=== PATIENT | female | born 1965 | race Caucasian/White ===

== ENCOUNTER 2016-11-10 17:13 | Emergency (ER) | payer OTHER ==
[~2016-11-10] VITALS: Ht 157.5 cm; Wt 78.0 kg
[2016-11-10 17:15] VITALS: Ht 157.5 cm; Wt 78.0 kg
[2016-11-10] MEDS ORDERED: KETOROLAC 30 MG INJ IM STA (17:57)
[2016-11-10] MEDS ORDERED: traMADol 50 MG TAB PO ONE (18:00)
--- NOTE | 2016-11-10 18:33 | ERD ---
ER Documentation Chief Complaint Date/Time DATE: 11/10/16 TIME: 18:22 Chief Complaint UPPER BACK PAIN HPI Patient is a 51-year-old female here with neighbor who presents to the ED with upper back pain and neck pain 1 week. Patient states that she has a history of chronic low back pain 4 years. She states that she used to do a lot of house cleaning and developed pain to her low back. She states that she has been using a back brace and states that she has been sleeping with her back brace and developed pain to her upper back. She states that she feels "a pinched nerve". She denies bowel or bladder incontinence. She is able to move her neck but hurts with extreme flexion and extension. Denies trauma or falls. Denies headache or dizziness. Denies fever or chills. ROS All systems reviewed and are negative except as per history of present illness. Medications Home Meds Active Scripts Hydrocodone/Acetaminophen (Jackson 5-325 Tablet) 1 Each Tablet, 1 TAB PO Q6H Y for PAIN, #5 TAB Prov:ELY MCPHERSON PA-C 11/10/16 Meloxicam* (Meloxicam*) 7.5 Mg Tablet, 7.5 MG PO DAILY, #30 TAB Prov:ELY MCPHERSON PA-C 11/10/16 Reported Medications [None] No Conflict Check 12/20/15 Allergies Allergies: Coded Allergies: No Known Allergy (Unverified , 12/20/15) PMhx/Soc History of Surgery: Yes ( X2) Anesthesia Reaction: No Hx Neurological Disorder: No Hx Respiratory Disorders: No Hx Cardiac Disorders: No Hx Psychiatric Problems: No Hx Miscellaneous Medical Probl: No Hx Alcohol Use: Yes (social) Hx Substance Use: No Hx Tobacco Use: No Smoking Status: Never smoker FmHx Family History: No coronary disease, No diabetes, No other Physical Exam Vitals Vital Signs Date Time Temp Pulse Resp B/P Pulse Ox O2 Delivery O2 Flow Rate FiO2 11/10/16 17:15 98.1 68 18 138/78 99 Physical Exam ER COURSE: I kept the patient and/or family informed of laboratory and diagnostic imaging results throughout the emergency room course. IMAGING STUDIES MEDICAL DECISION MAKING: This is a [] who presents with []. Vital signs were reviewed. Patient is afebrile. Patient is not hypoxic. DISCHARGE: Results 24 hrs Current Medications Medications (Trade) Dose Ordered Sig/Bessy Route PRN Reason Start Time Stop Time Status Last Admin Dose Admin Tramadol HCl (Ultram) 50 mg ONCE ONCE PO 11/10/16 18:00 11/10/16 18:00 DC Ketorolac Tromethamine (Toradol) 30 mg ONCE STAT IM 11/10/16 17:57 11/10/16 17:59 DC 11/10/16 18:03 Acetaminophen (Tylenol Tab) 650 mg ONCE ONCE PO 11/10/16 19:30 11/10/16 19:31 11/10/16 19:23 Procedures/MDM ER COURSE: I kept the patient and/or family informed of laboratory and diagnostic imaging results throughout the emergency room course. IMAGING STUDIES [place] [id number] Radiology Main Line: [phone] DIAGNOSTIC IMAGING REPORT Patient: SARAH BAE : 1965 Age: 51 Sex: F MR #: [id number] DOS: 11/10/16 1741 Ordering MD: ELY MCPHERSON PA-C Location: [facility] Room/Bed: PROCEDURE: CT Cervical Spine without contrast. CLINICAL INDICATION: neck pain TECHNIQUE: Multiple axial cuts through the cervical spine with coronal and sagittal reformats were obtained without contrast. The calculated radiation dose measures 522 mGy centimeters. The CTDI measures 22 mGy COMPARISON: No prior studies are available for comparison. FINDINGS: There is straightening of the normal cervical lordosis. There is mild anterolisthesis at C3-C4 and C4-C5, measuring 3 mm and 2 mm. There is minimal disk space narrowing at C7-T1 and T1-T2. There is normal height of the vertebral bodies. There is no bone destruction or sclerosis. There is no visualized fracture. The atlantoaxial articulation demonstrates mild to moderate degenerative change.. There is normal craniocervical alignment. C2-3: There is minimal left uncovertebral hypertrophy. There is mild left facet hypertrophy. There is no bony central canal stenosis. There is minimal left foraminal stenosis. There is no significant bony right foraminal stenosis.. C3-4: There is a mild anterolisthesis. There is mild bilateral facet hypertrophy. There is no bony central canal stenosis. There is minimal bilateral bony foraminal stenosis.. C4-5: There is a mild anterolisthesis. There is no significant facet hypertrophy. There is no bony central canal stenosis. There is no bony foraminal stenosis.. C5-6: There is a minimal diffuse disk bulge. There is no significant facet hypertrophy. There is minimal central canal stenosis. There is no significant foraminal stenosis. C6-7: There is a mild central disk protrusion, 2 mm. There is minimal bilateral facet hypertrophy. There is mild appearing central canal stenosis. There is no bony foraminal stenosis.. C7-T1: There is no disk protrusion or extrusion. There is mild to moderate left facet hypertrophy. There is no right facet hypertrophy. There is no bony central canal stenosis. There is no bony foraminal stenosis.. There is no abnormal paravertebral soft tissue mass. IMPRESSION: 1. Mild anterolisthesis at C3-C4 and C4-C5, measuring 3 mm and 2 mm. 2. Mild central disk protrusion at C6-C7, and minimal disk bulge at C5-C6. Associated mild appearing central canal stenosis at C6-C7, and minimal central canal stenosis at C5-C6. 3. Mild-moderate left facet hypertrophy at C7-T1. Mild facet hypertrophy as noted at C2-C3 and C3-C4. Minimal appearing foraminal stenosis as noted at C2- C3 and C3-C4. RPTAT: HBST .Woody Lorenzo MD, MD Date Time Electronically viewed and signed by .Woody Lorenzo MD, MD on 11/10/2016 19:12 .T/ CC: ELY MCPHERSON PA-C [place] [address] Radiology Main Line: [phone] DIAGNOSTIC IMAGING REPORT Patient: SARAH BAE : 1965 Age: 51 Sex: F MR #: [id number] DOS: 11/10/16 1741 Ordering MD: ELY MCPHERSON PA-C Location: [facility] Room/Bed: PROCEDURE: CT thoracic Spine without contrast. CLINICAL INDICATION: upper back pain TECHNIQUE: Multiple axial images through the thoracic spine with coronal and sagittal reformats were obtained without contrast. The calculated radiation dose measures 318 mGy centimeters. The CTDI measures 9 mGy COMPARISON: No prior studies are available for comparison. FINDINGS: There is anatomic alignment of the thoracic vertebral bodies. There is normal height of the vertebral bodies. There is minimal disk space narrowing through the thoracic spine.. There is no bone destruction or sclerosis. There is no dislocation or fracture. There is minimal appearing disk osteophyte complex at T1-T2. There is a minimal right paracentral disk protrusion at T6-T7, and a mild central disk protrusion at T7-T8, 3 mm. There is mild bilateral facet hypertrophy at T4-T5 and T5-T6.. There is no bony central canal stenosis identified. There is minimal bilateral foraminal narrowing at T9-T10.. IMPRESSION: 1. No visualized fracture or dislocation. 2. Mild disk protrusion at T7-T8. Minimal appearing disk protrusions at T1-T2 and T6-T7. No significant associated central canal stenosis. 3. Mild appearing mid thoracic spine facet hypertrophy. RPTAT: HBST .Woody Lorenzo MD, MD Date Time Electronically viewed and signed by .Woody Lorenzo MD, MD on 11/10/2016 19:20 .T/ CC: ELY MCPHERSON PA-C MEDICATIONS Patient was given Toradol here in the ED. Tolerated well with no adverse reaction. Tylenol was also given. MEDICAL DECISION MAKING: This is a 51-year-old female who presents with neck and upper back pain. Vital signs were reviewed. Patient is afebrile. Patient is not hypoxic. Patient is not toxic or ill-appearing. Patient's CT scan is read by radiologist shows disc protrusion and spinal stenosis. Unremarkable for fracture or dislocation. Low suspicion for dislocation, fracture, epidural abscess, herniation, osteomyelitis, meningitis, neurological deficit. Low suspicion for cauda equine syndrome, spinal epidural hematoma, spinal epidural abscess, osteomyelitis, fracture, aortic dissection, AAA, pyelonephritis, nephrolithiasis , septic stone, obstructed stone. DISCHARGE: At this time, patient is stable for discharge and outpatient management with no new complaints during the ER course. Patient was sent home with meloxicam, Jackson and to follow-up with tax specialist and pain management doctor. Copy of all CT images are given to patient.. Patient will be discharged home with instructions to recheck for new or worsening symptoms such as fever, nausea , weakness, LOC and to follow up with primary care in the next 1-2 days. Patient was advised to return to the ER for any new or worsening symptoms. Plan was discussed and patient and/or family understands and agrees. Home instructions were given. Departure Diagnosis: Primary Impression: Degenerative disc disease Mid-cervical spinal level: unspecified Condition: Stable ELY MCPHERSON PA-C Nov 10, 2016 18:33
--- NOTE | 2016-11-10 19:13 | RADRPT ---
PROCEDURE: CT Cervical Spine without contrast. CLINICAL INDICATION: neck pain TECHNIQUE: Multiple axial cuts through the cervical spine with coronal and sagittal reformats were obtained without contrast. The calculated radiation dose measures 522 mGy centimeters. The CTDI susanne sures 22 mGy COMPARISON: No prior studies are available for comparison. FINDINGS: There is straightening of the normal cervical lordosis. There is mild anterolisthesis at C3-C4 and C4-C5, measuring 3 mm and 2 mm. There is minimal disk space narrowing at C7-T1 and T1-T2. There is normal height of the vertebral bodies. There is no bone destruction or sclerosis. There is no visu alized fracture. The atlantoaxial articulation demonstrates mild to moderate degenerative change.. There is normal c raniocervical alignment. C2-3: There is minimal left uncovertebral hypertrophy. There is mild left facet hypertrophy. There is no bony central canal stenosis. There is minimal left foraminal stenosis. There is no signific ant bony right foraminal stenosis.. C3-4: There is a mild anterolisthesis. There is mild bilateral facet hypertrophy. There is no bony central canal stenosis. There is minimal bilateral bony foraminal stenosis.. C4-5: There is a mild anterolisthesis. There is no significant facet hypertrophy. There is no bony central canal stenosis. There is no bony foraminal stenosis.. C5-6: There is a minimal diffuse disk bulge. There is no significant facet hypertrophy. There is m inimal central canal stenosis. There is no significant foraminal stenosis. C6-7: There is a mild central disk protrusion, 2 mm. There is minimal bilateral facet hypertrophy. There is mild appearing central canal stenosis. There is no bony foraminal stenosis.. C7-T1: There is no disk protrusion or extrusion. There is mild to moderate left facet hypertrophy. There is no right facet hypertrophy. There is no bony central canal stenosis. There is no bony fo raminal stenosis.. There is no abnormal paravertebral soft tissue mass. IMPRESSION: 1. Mild anterolisthesis at C3-C4 and C4-C5, measuring 3 mm and 2 mm. 2. Mild central disk protrusion at C6-C7, and minimal disk bulge at C5-C6. Associated mild appeari ng central canal stenosis at C6-C7, and minimal central canal stenosis at C5-C6. 3. Mild-moderate left facet hypertrophy at C7-T1. Mild facet hypertrophy as noted at C2-C3 and C3- C4. Minimal appearing foraminal stenosis as noted at C2-C3 and C3-C4. RPTAT: HBST .Woody Lorenzo MD, MD Date Time Electronically viewed and signed by .Woody Lorenzo MD, MD on 11/10/2016 19:12 .T/
--- NOTE | 2016-11-10 19:20 | RADRPT ---
PROCEDURE: CT thoracic Spine without contrast. CLINICAL INDICATION: upper back pain TECHNIQUE: Multiple axial images through the thoracic spine with coronal and sagittal reformats we re obtained without contrast. The calculated radiation dose measures 318 mGy centimeters. The CTDI m easures 9 mGy COMPARISON: No prior studies are available for comparison. FINDINGS: There is anatomic alignment of the thoracic vertebral bodies. There is normal height of the vertebr al bodies. There is minimal disk space narrowing through the thoracic spine.. There is no bone destr uction or sclerosis. There is no dislocation or fracture. There is minimal appearing disk osteophyte complex at T1-T2. There is a minimal right paracentral d isk protrusion at T6-T7, and a mild central disk protrusion at T7-T8, 3 mm. There is mild bilatera l facet hypertrophy at T4-T5 and T5-T6.. There is no bony central canal stenosis identified. There is minimal bilateral foraminal narrowing at T9-T10.. IMPRESSION: 1. No visualized fracture or dislocation. 2. Mild disk protrusion at T7-T8. Minimal appearing disk protrusions at T1-T2 and T6-T7. No signi ficant associated central canal stenosis. 3. Mild appearing mid thoracic spine facet hypertrophy. RPTAT: HBST .Woody Lorenzo MD, MD Date Time Electronically viewed and signed by .Woody Lorenzo MD, on 11/10/2016 19:20 .T/
[2016-11-10] MEDS ORDERED: HYDR-906 PO (19:25)
[2016-11-10] MEDS ORDERED: MELO-109 PO (19:25)
[2016-11-10] MEDS ORDERED: ACETAMINOPHEN 325 MG TAB PO ONE (19:30)
[2016-11-10 19:45] VITALS: BP 131/78; PULSE 76; RESP 18
== END 2016-11-10 19:47 | disposition home or self-care (01) ==
LOC: FTE 17:13
DX: M51.34 Other intervertebral disc degeneration, thoracic region (principal)
CPT/HCPCS: 72125; 72128; 96372; J1885; Z7502; Z7610